=== PATIENT | female | born 1965 | race Hispanic/Latino ===

== ENCOUNTER 2018-06-15 20:46 | Emergency (ER) | payer MEDICARE ==
[2018-06-15] MEDS ORDERED: Ondansetron HCl/PF 4 MG/2 ML Vial ONE (21:08)
[2018-06-15] MEDS ORDERED: Fentanyl 100 MCG/2 ML VIAL ONE (21:08)
--- NOTE | 2018-06-15 22:11 | ULT ---
PELVIC ULTRASOUND WITH DOPPLER 06/15/18 (Transabdominal, transvaginal, araiza scale, and color flow and spectral doppler). HISTORY: Left lower quadrant pain during her period. FINDINGS: The uterus measures 9.6 x 4.8 x 5.3 cm. There is a focal mass-like heterogeneous area near the fundus measuring 1.5 cm. The endometrium measures 8 mm in thickness. No free fluid is seen. The right ovary is not visualized. The left ovary measures 2.2 x 1 x 2.1 cm. Flow is demonstrated to the left ovary. No adnexal mass is seen on either side. A small amount of free fluid is seen in the r ight adnexal region. IMPRESSION: 1. Uterine fibroid. 2. Nonvisualization of the right ovary. 3. Small amount of free fluid in the right adnexal region. POS: RAVI
== END 2018-06-16 00:17 | disposition home or self-care (01) ==
LOC: ERS 20:46
DX: R10.12 Left upper quadrant pain (principal); E11.9 Type 2 diabetes mellitus without complications; I10 Essential (primary) hypertension; J45.909 Unspecified asthma, uncomplicated; F32.9 Major depressive disorder, single episode, unspecified; Z87.891 Personal history of nicotine dependence; Z79.84 Long term (current) use of oral hypoglycemic drugs; Z79.899 Other long term (current) drug therapy
CPT/HCPCS: 76856; 96361; 96374; 96375; J2405; J3010

== ENCOUNTER 2019-02-23 14:45 | Observation (INO) | payer MEDICARE ==
--- NOTE | 2019-02-23 16:01 | RAD ---
EXAMINATION: 3 views of the left wrist HISTORY: Wrist pain; cyst in the left wrist COMPARISON: None FINDINGS: 3 views of the left wrist shows no evidence of acute fracture or dislocation. No soft tissu e swelling is seen. No degenerative changes are present. IMPRESSION: No evidence of acute osseous abnormality.
[2019-02-23] MEDS ORDERED: Lidocaine 1% PF 5 ML VIAL ONE (16:05)
[2019-02-23] MEDS ORDERED: PROPOFOL 200 MG/20 ML VIAL ONE (16:05)
[2019-02-23] MEDS ORDERED: Dexamethasone 20 MG/5 ML VIAL ONE (16:05)
[2019-02-23] MEDS ORDERED: Ketorolac Tromethamine 30 MG/ML VIAL ONE (16:45)
[2019-02-23 17:19] LABS: #Basophils 0.1 thou/uL (0.0-0.2); #Eosinphils 0.1 thou/uL (0.0-0.7); #Lymphocytes 3.5 thou/uL (1.20-3.40); #Monocytes 0.7 thou/uL (0.11-0.59); #Neutrophils 6.2 thou/uL (1.40-6.50); %Basophils 0.6 % (0.0-1.0); %Eosinophils 1.2 % (0.0-10.0); %Lymphocytes 32.8 % (21.0-51.0); %Monocytes 6.7 % (0.0-10.0); %Neutrophils 58.6 % (42.0-75.0); Hemoglobin 13.7 g/dL (12.0-16.0); Mean Corpuscular HGB CONC 32.7 g/dL (32.0-36.0); Mean Corpuscular Hemoglobin 28.6 pg (27.0-31.0); Mean Corpuscular Volume 87.5 fL (78.0-98.0); Mean Platelet Volume 7.6 fL (7.4-10.4); Platelet Count 270 thou/uL (130-400); RBC Distribution Width 11.7 % (11.5-14.5); Red Blood Cell (RBC) Count 4.78 mill/uL (4.20-5.40); White Blood Cell (WBC) Count 10.6 thou/uL (4.8-10.8)
[2019-02-23 17:38] LABS: BHCG - Serum Negative (NEGATIVE); Pregs Control Background? CLEAR/WHITE (CLR/WHITE); Pregs Control Bar Appear? YES (CONTROL BAR)
[2019-02-23 17:40] LABS: ALT (SGPT) 20 U/L (8-55); AST (SGOT) 13 U/L (5-34); Albumin 4.1 g/dL (3.5-5.0); Alkaline Phosphatase 129 U/L (40-150); Anion Gap 12 mmol/L (10-20); BUN (Urea Nitrogen) 9 mg/dL (9.8-20.1); Bilirubin, Total 0.3 mg/dL (0.2-1.2); Calc. Creatinine Clearance 0 mL/min (70-130); Calcium 9.4 mg/dL (7.8-10.44); Carbon Dioxide 26 mmol/L (22-29); Chloride 104 mmol/L (98-107); Estimated GFR-MDRD Greater than 90; Glucose 133 mg/dL (70-105); Potassium 3.9 mmol/L (3.5-5.1); Protein, Total 7.1 g/dL (6.0-8.3); Sodium 138 mmol/L (136-145)
--- NOTE | 2019-02-23 18:04 | ULT ---
ULTRASOUND SOFT TISSUE OF THE LEFT WRIST: 02/23/19 HISTORY: Left wrist mass. FINDINGS/IMPRESSION: Sonographic evaluation of region of concern in the left wrist demonstrates a complex cystic mass oniel uring about 1 cm in the lateral aspect of the left wrist without internal flow. This cystic mass is v yair close to the radial artery but appears to be separate from it. The complex cystic mass is on the lateral aspect of the right radial artery. The etiology of the mass is uncertain. POS: SHARA
[2019-02-23] MEDS ORDERED: Morphine 4 MG/ML VIAL ONE (19:56)
[2019-02-23] MEDS ORDERED: Ondansetron PF 4 MG/2 ML Vial ONE (19:56)
[2019-02-23] MEDS ORDERED: Bupivacaine PF 0.5% 30 ML VIAL ONE (21:14)
[2019-02-23] MEDS ORDERED: Sodium Chloride 0.9% 10 ML ONE (21:14)
[2019-02-23] MEDS ORDERED: Bacitracin Zinc Ointment 30 gm TUBE ONE (21:14)
[2019-02-23] MEDS ORDERED: Hetastarch 6% 500 ML 0 ML ONE (21:20)
[2019-02-23] MEDS ORDERED: Heparin 10,000 UNITS/1 ML VIAL ONE (21:20)
[2019-02-23] MEDS ORDERED: Lidocaine 2% PF 5 ML VIAL ONE (21:20)
[2019-02-23] MEDS ORDERED: Midazolam HCl 2 mg/2 ml Vial ONE (21:31)
[2019-02-23] MEDS ORDERED: Fentanyl 100 MCG/2 ML VIAL ONE (21:31)
[2019-02-23] MEDS ORDERED: Betamet Acet/Betamet Na Ph 30 MG/5 ML VIAL ONE (22:35)
[2019-02-23] MEDS ORDERED: Promethazine HCl 25 MG/ML VIAL SLOW IVP PRN (23:21)
[2019-02-23] MEDS ORDERED: Ondansetron HCl/PF 4 MG/2 ML Vial IVP PRN (23:21)
[2019-02-23] MEDS ORDERED: Promethazine HCl 25 MG/ML VIAL IM PRN ×2 (23:21→23:35)
[2019-02-23] MEDS ORDERED: Milk Of Magnesia 30 ML UDCUP PO PRN (23:35)
[2019-02-23] MEDS ORDERED: Acetaminophen 325 MG TAB PO PRN (23:35)
[2019-02-23] MEDS ORDERED: traMADol HCl 50 MG TAB PO PRN (23:35)
[2019-02-23] MEDS ORDERED: HYDROcodone/Acetaminophen 5/325 mg Tablet PO PRN (23:35)
[2019-02-23] MEDS ORDERED: Morphine 4 MG/ML VIAL SLOW IVP PRN (23:35)
[2019-02-23] MEDS ORDERED: Ondansetron PF 4 MG/2 ML Vial IV PRN (23:35)
[2019-02-23] MEDS ORDERED: Ketorolac Tromethamine 30 MG/ML VIAL IVP PRN (23:43)
[2019-02-23] MEDS ORDERED: TETANUS AND DIPHTHERIA TOX/PF 0.5 ML DISP.SYRIN IM SCH (23:45)
[2019-02-23] MEDS ORDERED: Communication Order-Pharmacy FS SCH (23:45)
[2019-02-23] MEDS ORDERED: Vancomycin HCl 1 GM in Premix Bag 1 BAG IVPB SCH (23:45)
[2019-02-24] MEDS: Ketorolac Tromethamine 30 MG/ML VIAL IVP SCH ×2 (00:30→05:53)
[2019-02-24 01:08] VITALS: BMI 43.1
[2019-02-24] MEDS ORDERED: Vancomycin HCl 1.25 GM in Sodium Chloride 0.9% 250 ML 250 ML IVPB SCH (03:00)
[2019-02-24 07:50] VITALS: BP 103/68; TEMP 98
[2019-02-24] MEDS ORDERED: Aspirin 81 mg Enteric Coated Tablet PO SCH (09:00)
--- NOTE | 2019-02-24 09:44 | OP ---
DATE OF PROCEDURE: 02/23/2019 PREOPERATIVE DIAGNOSIS: 1. 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 2. Left wrist palmar ganglion surrounding radial artery. FINDINGS: Ganglion, ulnar edge under the radial artery and its radial edge pushing through the superficial radial nerve over the brachioradialis tendon. PROCEDURES PERFORMED: 1. Left wrist open palmar ganglion excision 2-2.5 cm cavity. 2. Left wrist superficial radial nerve neuroplasty with left wrist arthrotomy with synovectomy. SPECIMENS SENT: Left wrist 2.5 cm cavity ganglion, radiocarpal. ESTIMATED BLOOD LOSS: 15 mL. TOURNIQUET TIME: 21 minutes. FINDINGS DESCRIPTION: The patient had a ganglion developing underneath the radial artery, pushing it ulnarly and then moving to push radially against superficial radial nerve . DESCRIPTION OF PROCEDURE: After successful general LMA technique, the limb was prepped and draped. Time-out was done appropriately. The patient had the wound evaluated and we already knew was intact. We then exsanguinated the limb, inflated tourniquet to 250 mmHg pressure and made a zigzag incision, Jeb type, palmarly centered over the mass and carried this through the skin and subcutaneous tissue, removing and cauterizing a one small muscular bleeding branch and then we visualized, in fact the radial artery was over a thick red, yellow mass consistent with a hemorrhagic ganglion. We also saw that the mass was confluent with compression upon the superficial radial nerve terminal branches, so we immediately performed a neuroplasty, it from the nerve. We then performed a small arthrotomy and lifted the venous arterial complex off the mass, and moving it radially for remaining part of the procedure. We then did a 360-degree dissection in a combination with tenotomy scissors and a Bond blade until we had completely freed the mass. The mass cavity was about 2 cm as it was minimally perforated and had a stalk approximately 3 mm pointing in the radiocarpal joint. We carried this through the joint capsule, retinaculum, then evaluated the joint and found that we had a small amount of synovitis, so we performed a mini synovectomy of the radiocarpal joint. The tourniquet was now deflated. We placed 2 mL of Celestone in the wound, and then completed our arthrotomy with synovectomy. We also released the tourniquet, obtained hemostasis using some vessel clips and electrocautery and pressure. We closed the wound with interrupted 4-0 nylon in a mattress pattern. Bulky dressing was applied along with a short-arm splint. A short-arm splint was applied. The patient left the operating room without evidence of anesthetic or operative complication. Job ID: [id number]
--- NOTE | 2019-03-09 13:56 | EKG ---
Test Reason : Blood Pressure : / mmHG Vent. Rate : 077 BPM Atrial Rate : 077 BPM P-R Int : 130 ms QRS Dur : 096 ms QT Int : 384 ms P-R-T Axes : 054 023 025 degrees QTc Int : 434 ms Normal sinus rhythm Nonspecific ST abnormality Abnormal ECG Confirmed by LB WARREN D.O. ([id number]), editor city DAY MCGREGOR ([id number]) on 03/09/2019 1:54:57 PM Referred By: Confirmed By:LB WARREN D.O.
== END 2019-02-24 11:22 | disposition home or self-care (01) ==
LOC: ERS 14:45 → SDC/OP 19:49 → SURG A 02-24 00:13
PROVIDERS: ADMIT Orthopaedic Surgery Hand Surgery; ATTEND Orthopaedic Surgery Hand Surgery
PROC: 0LB60ZZ Excision of Left Lower Arm and Wrist Tendon, Open Approach (ICD-10-PCS; principal; 2019-02-24)
PROC: 01N60ZZ Release Radial Nerve, Open Approach (ICD-10-PCS; 2019-02-24)
DX: M67.432 Ganglion, left wrist (principal); G62.89 Other specified polyneuropathies; G89.29 Other chronic pain; M54.9 Dorsalgia, unspecified; I10 Essential (primary) hypertension; E11.9 Type 2 diabetes mellitus without complications; J45.909 Unspecified asthma, uncomplicated; F32.9 Major depressive disorder, single episode, unspecified; Z87.891 Personal history of nicotine dependence; Z79.51 Long term (current) use of inhaled steroids; Z79.82 Long term (current) use of aspirin; Z79.899 Other long term (current) drug therapy; Z98.890 Other specified postprocedural states
CPT/HCPCS: 25111; 64708; 73110; 76999; 80053; 82962 ×2; 84703; 85025; 88304; 93005; 96361; 96365; 96366; 96374; 96375 ×2; 96376; 99285; G0378 ×2; 36416; J0690; J0702; J1100; J1644; J1885; J2001; J2250; J2270; J2405; J2550; J2704; J3010; J3370; J3490; J7050; J7620; S0020

== ENCOUNTER 2019-11-23 12:32 | Outpatient (CLI) | payer MEDICARE ==
[2019-11-23 13:59] LABS: #Basophils 0.1 thou/uL (0.0-0.2); #Eosinphils 0.1 thou/uL (0.0-0.7); #Lymphocytes 3.2 thou/uL (1.20-3.40); #Monocytes 0.6 thou/uL (0.11-0.59); #Neutrophils 6.3 thou/uL (1.40-6.50); %Basophils 0.7 % (0.0-1.0); %Eosinophils 1.2 % (0.0-10.0); %Monocytes 5.9 % (0.0-10.0); %Neutrophils 61.2 % (42.0-75.0); Hemoglobin 15.5 g/dL (12.0-16.0); Mean Corpuscular HGB CONC 32.4 g/dL (32.0-36.0); Mean Corpuscular Hemoglobin 28.5 pg (27.0-31.0); Mean Corpuscular Volume 88.1 fL (78.0-98.0); Mean Platelet Volume 8.2 fL (7.4-10.4); Platelet Count 245 thou/uL (130-400); RBC Distribution Width 11.1 % (11.5-14.5); Red Blood Cell (RBC) Count 5.45 mill/uL (4.20-5.40); White Blood Cell (WBC) Count 10.2 thou/uL (4.8-10.8)
[2019-11-23 14:06] LABS: Prothrombin Time 12.8 SEC (12.0-14.7)
[2019-11-23 14:18] LABS: Bacteria/HPF None Seen HPF (None Seen); Bilirubin Negative (Negative); Blood, Urine Negative (Negative); Clarity Clear (Clear); Glucose, Urine (Dipstick) Greater than 1000 mg/dL (Negative); Leukocyte Negative Leu/uL (Negative); Nitrite Negative (Negative); Protein, Urine (Dipstick) Negative (Neg-Trace); RBC/HPF 0-3 HPF (0-3); Urobilinogen Normal mg/dL (Less than 2); WBC/HPF 0-3 HPF (0-3)
[2019-11-23 14:19] LABS: Anion Gap 13 mmol/L (10-20); BUN (Urea Nitrogen) 11 mg/dL (9.8-20.1); Calc. Creatinine Clearance 0 mL/min (70-130); Calcium 9.3 mg/dL (7.8-10.44); Carbon Dioxide 28 mmol/L (22-29); Chloride 101 mmol/L (98-107); Estimated GFR-MDRD 81; Glucose 300 mg/dL (70-105); Potassium 4.4 mmol/L (3.5-5.1); Sodium 138 mmol/L (136-145)
== END 2019-11-23 12:33 | disposition home or self-care (01) ==
LOC: LABBT 12:32
PROVIDERS: ATTEND Orthopaedic Surgery
DX: Z01.818 Encounter for other preprocedural examination (principal); M17.12 Unilateral primary osteoarthritis, left knee
CPT/HCPCS: 80048; 81001; 85025; 85610; 87081; 93005; 93010

== ENCOUNTER 2019-12-05 07:40 | Inpatient (IN) | payer MEDICARE ==
[2019-11-23 12:49] VITALS: BMI 39.6
[2019-12-05] MEDS ORDERED: Tranexamic Acid 1,000 MG/10 ML VIAL ONE (09:03)
[2019-12-05] MEDS ORDERED: Sodium Chloride 0.9% 100 ML ONE (09:03)
[2019-12-05] MEDS ORDERED: Vancomycin 1.5 GRAM/300 ML BAG 1.5 GM/300 ML BAG ONE (09:03)
[2019-12-05] MEDS ORDERED: Midazolam HCl 2 mg/2 ml Vial ONE (10:13)
[2019-12-05] MEDS ORDERED: Fentanyl 100 MCG/2 ML VIAL ONE ×3 (10:13→13:53)
[2019-12-05] MEDS ORDERED: Fentanyl 100 MCG/2 ML VIAL SLOW IVP PRN ×2 (10:54)
[2019-12-05] MEDS ORDERED: Promethazine HCl 25 MG/ML VIAL IM PRN ×2 (10:54→10:56)
[2019-12-05] MEDS ORDERED: Acetaminophen 325 MG TAB PO PRN ×2 (10:54→10:56)
[2019-12-05] MEDS ORDERED: Zolpidem Tartrate 5 MG TAB PO PRN ×2 (10:54→10:56)
[2019-12-05] MEDS ORDERED: diphenhydrAMINE 25 MG CAP PO PRN (10:54)
[2019-12-05] MEDS ORDERED: HYDROcodone/Acetaminophen 10/325 mg Tablet PO PRN ×3 (10:54→10:56)
[2019-12-05] MEDS ORDERED: Albuterol Sulfate 2.5 mg/3 ml Neb NEB PRN (10:55)
[2019-12-05] MEDS ORDERED: PROVENTIL INHALER 6.7 G (200 INHALATIONS) INH PRN (10:55)
[2019-12-05] MEDS ORDERED: Non-Formulary Item 1 EACH (Albuterol Sulfate [Proair Respiclick] 90 MCG) IH PRN (10:55)
[2019-12-05] MEDS ORDERED: traMADol HCl 50 MG TAB PO PRN (10:56)
[2019-12-05] MEDS ORDERED: Ropivacaine HCl/PF 250 ML in Premix Bag 1 BAG NERVE BLCK SCH (10:56)
[2019-12-05] MEDS ORDERED: Ondansetron PF 4 MG/2 ML Vial IVP PRN (10:56)
[2019-12-05] MEDS ORDERED: Ondansetron PF 4 MG/2 ML Vial ONE (11:13)
[2019-12-05] MEDS ORDERED: Lidocaine 1% PF 5 ML VIAL ONE (11:13)
[2019-12-05] MEDS ORDERED: Bupivacaine HCl 0.5%/Epinephrine 1:200,000/PF 30 ml Vial ONE (11:13)
[2019-12-05] MEDS ORDERED: PROPOFOL 200 MG/20 ML VIAL ONE (11:13)
[2019-12-05] MEDS ORDERED: Ropivacaine 0.2% HCl/PF (40 MG/20 ML VIAL) ONE (11:13)
[2019-12-05] MEDS ORDERED: Ketorolac Tromethamine 30 MG/ML VIAL IVP SCH (12:00)
--- NOTE | 2019-12-05 13:17 | RAD ---
EXAM: 2 views of the left knee HISTORY: Knee arthroplasty COMPARISON: None FINDINGS: No knee effusion is seen. The patient is status post knee arthroplasty without perihardware lucency or fracture. Air in the soft tissues is from recent surgery. IMPRESSION: Status post knee arthroplasty without evidence of complication.
[2019-12-05] MEDS: Sodium Chloride 0.9% 1,000 ML IV SCH ×2 (15:41→22:54)
[2019-12-05] MEDS ORDERED: Dextrose 5% in Water 1,000 ML IV PRN (16:15)
[2019-12-05] MEDS ORDERED: Dextrose 50% Abboject 50 ML SYRINGE SLOW IVP PRN (16:15)
[2019-12-05] MEDS: metFORMIN 500 MG TAB PO SCH (16:16)
[2019-12-05] MEDS: HYDROcodone/Acetaminophen 10/325 mg Tablet PO PRN ×2 (16:17→19:42)
[2019-12-05] MEDS: Ketorolac Tromethamine 30 MG/ML VIAL IVP SCH ×2 (16:18→22:54)
[2019-12-05] MEDS ORDERED: CEFAZOLIN 2 GM in Premix Bag 1 BAG IVPB SCH (17:00)
[2019-12-05 17:06] LABS: #Basophils 0.1 thou/uL (0.0-0.2); #Eosinphils 0.1 thou/uL (0.0-0.7); #Monocytes 0.7 thou/uL (0.11-0.59); #Neutrophils 11.7 thou/uL (1.40-6.50); %Basophils 0.4 % (0.0-1.0); %Eosinophils 0.6 % (0.0-10.0); %Lymphocytes 13.4 % (21.0-51.0); %Neutrophils 80.7 % (42.0-75.0); Hemoglobin 13.9 g/dL (12.0-16.0); Mean Corpuscular HGB CONC 31.5 g/dL (32.0-36.0); Mean Corpuscular Hemoglobin 28.1 pg (27.0-31.0); Mean Corpuscular Volume 89.3 fL (78.0-98.0); Mean Platelet Volume 8.4 fL (7.4-10.4); Platelet Count 221 thou/uL (130-400); RBC Distribution Width 11.2 % (11.5-14.5); Red Blood Cell (RBC) Count 4.95 mill/uL (4.20-5.40); White Blood Cell (WBC) Count 14.5 thou/uL (4.8-10.8)
[2019-12-05 17:17] LABS: Anion Gap 13 mmol/L (10-20); BUN (Urea Nitrogen) 9 mg/dL (9.8-20.1); Calc. Creatinine Clearance 153 mL/min (70-130); Calcium 8.5 mg/dL (7.8-10.44); Carbon Dioxide 21 mmol/L (22-29); Chloride 104 mmol/L (98-107); Estimated GFR-MDRD Greater than 90; Glucose 320 mg/dL (70-105); Potassium 4.1 mmol/L (3.5-5.1); Sodium 134 mmol/L (136-145)
[2019-12-05 17:24] LABS: Lactic Acid 2.3 mmol/L (0.5-2.2)
[2019-12-05] MEDS ORDERED: guaiFENesin 200 MG TAB PO PRN (17:53)
--- NOTE | 2019-12-05 17:59 | RAD ---
Exam: Chest one view HISTORY:Productive cough. Shortness of breath Comparison: 10/26/2016 FINDINGS: Cardiac silhouette: Normal Aorta: Unremarkable Pulmonary vessels: Normal Costophrenic angles: Clear LUNGS: No masses or consolidation. Pneumothorax: None Osseous abnormalities: None IMPRESSION: No acute cardiopulmonary process.
[2019-12-05] MEDS: Ondansetron PF 4 MG/2 ML Vial IVP PRN (18:05)
[2019-12-05] MEDS: HumaLOG 300 UNITS/3 ML VIAL SC PRN ×2 (18:33→22:01)
--- NOTE | 2019-12-05 19:28 | CON ---
DATE OF CONSULTATION: 12/05/2019 TIME OF ASSESSMENT: 1500 hours. REASON FOR CONSULTATION: Medical management. HISTORY OF PRESENT ILLNESS: Ms. Barker is a 54-year-old woman, who is status post left total knee replacement. She had this procedure done earlier today. She has just recently been brought up to floor and at this present moment, the patient states she feels somewhat anxious and with some difficulty breathing. She has developed a productive cough of yellow sputum. She states she felt like she was wheezing prior to surgery. She does have known asthma and is due for her nebulizer treatment for p.m. and missed her nebulizer treatment this morning due to surgery. The patient denies having any recent fevers, chills, or sweats. States she did not have a cough prior to today. Denies any chest pain. She states she does take medications for depression and sometimes feels anxious. She was feeling somewhat constricted by the bedside table and felt better once I moved it away from her and elevated the head of her bed. The patient also states she is in some discomfort. Nurse at bedside giving her scheduled pain medications. She reports feeling very hungry. Has not had anything to eat yet since surgery. Denies any nausea or vomiting. Reports mild headache due to not eating. No abdominal pain. REVIEW OF SYSTEMS: All other review of systems are negative. PAST MEDICAL HISTORY: 1. Asthma. 2. Type 2 diabetes mellitus. 3. Hyperlipidemia. 4. Chronic back pain. 5. Depression/anxiety. PAST SURGICAL HISTORY: 1. Ganglion cyst removed in February 2019. 2. Complication from tube across ovary that wrapped around appendix and surgery done to unravel this. 3. Appendix not removed per patient. 4. . 5. Tonsillectomy. 6. Tubal ligation. SOCIAL HISTORY: The patient is a former smoker and quit more than 10 years ago. Denies any alcohol consumption or illicit drug use. She is fully independent and lives at home alone. ALLERGIES: NO KNOWN DRUG ALLERGIES. CURRENT MEDICATIONS: 1. Albuterol. 2. Aspirin. 3. Diclofenac. 4. Jardiance. 5. Fluticasone/salmeterol. 6. Trazodone. 7. Hydrocortisone lotion. 8. Lisinopril. 9. Hyoscyamine. 10. Metformin. 11. Metoprolol succinate. 12. Montelukast. 13. Paxil. 14. Seroquel. 15. Topiramate. PHYSICAL EXAMINATION: GENERAL: The patient appears somewhat anxious and fidgety, in no apparent respiratory distress. She is saturating 96% on room air, but appears uncomfortable. She seemed to settle once I move the bedside table away from her. VITAL SIGNS: Temperature 96.8, pulse 66, respirations 20, O2 saturation 96% on room air, and blood pressure 122/77. HEENT: Normocephalic and atraumatic. Pupils are equal, round, and reactive to light. Sclerae icterus. Oropharynx is clear. NECK: Supple. LUNGS: Clear bilaterally. CARDIAC: Regular rate and rhythm. ABDOMEN: Obese, soft, nontender, and nondistended. Normoactive bowel sounds present. No guarding or rigidity. No renal angle tenderness. EXTREMITIES: No swelling or edema. NEUROLOGIC: Alert and oriented x3. The patient appears anxious and fidgety. SKIN: Warm and dry. IMPRESSION AND PLAN: Ms. Barker is a 54-year-old woman, who is status post a left total knee replacement, who has been referred for medical management. We will continue to follow, manage the followin. Shortness of breath with productive cough. We will obtain a chest x-ray. Continue to monitor O2 saturations, which appeared to be normal on room air. Guaifenesin for congestion and we will obtain sputum culture. We will check a CBC and BMP including lactic acid and procalcitonin. We will also check her BNP. The patient remains afebrile at present. 2. Diabetes mellitus. Regular diet has been changed to a consistent carb diet. We will monitor blood glucose and initiate insulin sliding scale. Her home medications have been reconciled. 3. Hyperlipidemia. Resume home medications once verified. 4. Anxiety/depression. Home medications have been reconciled. 5. Asthma. Nebulizers and inhalers have been reconciled. We will order DuoNeb for now. As mentioned above, we will obtain a baseline chest x-ray and monitor O2 saturations. 6. Gastrointestinal prophylaxis with famotidine. 7. Deep venous thrombosis prophylaxis with mechanical sequential compression devices. 8. Code status full. Surrogate decision maker is her son, Ced Mitchell. The patient's case was discussed with attending, who agrees with plan of care as described above. Job ID: [id number]
[2019-12-05] MEDS: Mometasone/Formoterol 120 PUFF INHALER INH SCH (19:58)
[2019-12-05] MEDS: CEFAZOLIN 2 GM in Premix Bag 1 BAG IVPB SCH (20:33)
[2019-12-05] MEDS: Simvastatin 5 MG TAB PO SCH (20:33)
[2019-12-05] MEDS: Aspirin 81 mg Enteric Coated Tablet PO SCH (20:34)
[2019-12-05] MEDS: Montelukast Sodium 10 mg Tablet PO SCH (20:34)
[2019-12-05] MEDS: Topiramate 25 MG TAB PO SCH (22:01)
[2019-12-06] MEDS: Ondansetron PF 4 MG/2 ML Vial IVP PRN (03:08)
[2019-12-06] MEDS: CEFAZOLIN 2 GM in Premix Bag 1 BAG IVPB SCH (03:09)
[2019-12-06] MEDS: Sodium Chloride 0.9% 1,000 ML IV SCH ×3 (03:18→15:47)
[2019-12-06] MEDS: Ketorolac Tromethamine 30 MG/ML VIAL IVP SCH ×3 (04:48→21:21)
[2019-12-06 05:36] LABS: #Basophils 0.1 thou/uL (0.0-0.2); #Lymphocytes 1.8 thou/uL (1.20-3.40); #Monocytes 1.2 thou/uL (0.11-0.59); #Neutrophils 9.6 thou/uL (1.40-6.50); %Basophils 0.5 % (0.0-1.0); %Eosinophils 0.2 % (0.0-10.0); %Monocytes 9.6 % (0.0-10.0); %Neutrophils 75.8 % (42.0-75.0); Hemoglobin 12.7 g/dL (12.0-16.0); Mean Corpuscular Hemoglobin 28.6 pg (27.0-31.0); Mean Corpuscular Volume 89.3 fL (78.0-98.0); Mean Platelet Volume 8.2 fL (7.4-10.4); Platelet Count 202 thou/uL (130-400); RBC Distribution Width 11.1 % (11.5-14.5); Red Blood Cell (RBC) Count 4.46 mill/uL (4.20-5.40); White Blood Cell (WBC) Count 12.6 thou/uL (4.8-10.8)
[2019-12-06 05:39] LABS: Hemoglobin 12.9 g/dL (12.0-16.0); Mean Corpuscular HGB CONC 30.9 g/dL (32.0-36.0); Mean Corpuscular Hemoglobin 28.4 pg (27.0-31.0); Mean Corpuscular Volume 92.1 fL (78.0-98.0); Mean Platelet Volume 8.4 fL (7.4-10.4); Platelet Count 203 thou/uL (130-400); RBC Distribution Width 11.3 % (11.5-14.5); Red Blood Cell (RBC) Count 4.53 mill/uL (4.20-5.40); White Blood Cell (WBC) Count 12.3 thou/uL (4.8-10.8)
[2019-12-06 05:53] LABS: Anion Gap 12 mmol/L (10-20); BUN (Urea Nitrogen) 11 mg/dL (9.8-20.1); Calc. Creatinine Clearance 153 mL/min (70-130); Calcium 8.4 mg/dL (7.8-10.44); Carbon Dioxide 20 mmol/L (22-29); Chloride 103 mmol/L (98-107); Estimated GFR-MDRD Greater than 90; Glucose 263 mg/dL (70-105); Potassium 3.9 mmol/L (3.5-5.1); Sodium 131 mmol/L (136-145)
[2019-12-06] MEDS: HumaLOG 300 UNITS/3 ML VIAL SC PRN ×4 (06:26→21:30)
[2019-12-06] MEDS: Mometasone/Formoterol 120 PUFF INHALER INH SCH ×2 (06:40→18:46)
[2019-12-06] MEDS: PARoxetine 20 MG TAB PO SCH (08:57)
[2019-12-06] MEDS: metFORMIN 500 MG TAB PO SCH ×2 (08:57→17:56)
[2019-12-06] MEDS: Furosemide 20 MG TAB PO SCH (08:58)
[2019-12-06] MEDS ORDERED: FLU VACC QS2019-20(6MOS UP)/PF 60 MCG/0.5 ML SYRINGE IM ONE (09:00)
[2019-12-06] MEDS ORDERED: Empagliflozin [Jardiance] 25 MG PO SCH (09:00)
[2019-12-06] MEDS ORDERED: Aspirin 81 mg Enteric Coated Tablet PO SCH (09:00)
[2019-12-06] MEDS ORDERED: HYDROCORTISONE 2.5% TOP SCH (09:00)
[2019-12-06] MEDS: Lisinopril 20 MG TAB PO SCH (09:05)
[2019-12-06] MEDS: Ferrous Gluconate 324 MG TAB PO SCH ×2 (09:05→21:34)
[2019-12-06] MEDS: Aspirin 81 mg Enteric Coated Tablet PO SCH ×2 (09:05→21:34)
[2019-12-06] MEDS: Multivitamin W/ Minerals 1 TAB PO SCH (09:05)
[2019-12-06] MEDS: Topiramate 25 MG TAB PO SCH ×2 (09:08→21:25)
[2019-12-06] MEDS: Senokot S 8.6-50 MG TAB PO SCH ×2 (09:08→21:35)
--- NOTE | 2019-12-06 11:58 | PDOC.HOSPP ---
- Subjective Encounter Date: 12/06/19 Encounter Time: 11:00 Subjective: had nausea overnight, none now ate her breakfast well - Objective Vital Signs & Weight: Vital Signs (12 hours) Temp Pulse Resp BP Pulse Ox 12/06/19 07:36 99.1 F 100 18 112/65 96 12/06/19 06:40 102 H 20 97 12/06/19 04:32 98.2 F 83 20 109/63 98 12/06/19 00:26 98.4 F 80 16 109/70 97 Weight Weight 224 lb I&O: 12/05/19 12/06/19 12/07/19 06:59 06:59 06:59 Intake Total 1800 Output Total 1025 Balance 775 Result Diagrams: 12/06/19 05:11 12/06/19 05:11 Additional Labs: Accuchecks 12/06/19 12/05/19 12/05/19 06:14 20:53 16:55 POC Glucose 271 H 270 H 322 H Hospitalist ROS - Medication Medications: Active Medications Generic Name Dose Route Start Last Admin Trade Name Freq PRN Reason Stop Dose Admin Aspirin 81 mg 12/05/19 21:00 12/06/19 09:05 Ecotrin PO Not Given BID DOYLE Ferrous Gluconate 324 mg 12/06/19 09:00 12/06/19 09:05 Fergon PO Not Given BID DOYLE Furosemide 20 mg 12/06/19 09:00 12/06/19 08:58 Lasix PO 20 mg QAM DOYLE Administration Sodium Chloride 1,000 mls @ 100 mls/hr 12/05/19 11:00 12/06/19 09:04 Normal Saline 0.9% IV Not Given .Q10H DOYLE Insulin Human Lispro 0 units 12/05/19 16:15 12/06/19 06:26 Humalog SC 4 unit .MILD SLIDING SCALE PRN Administration Mild Correctional Scale Insulin Human Lispro 0 units 12/05/19 16:15 12/05/19 22:01 Humalog SC 3 unit .BEDTIME SLIDING SC PRN Administration Bedtime Correctional Scale Iron/Minerals/Multivitamins 1 tab 12/06/19 09:00 12/06/19 09:05 Theragran M PO Not Given DAILY DOYLE Ketorolac Tromethamine 30 mg 12/05/19 14:00 12/06/19 04:48 Toradol IVP 12/07/19 14:01 30 mg Q8HR DOYLE Administration Lisinopril 20 mg 12/06/19 09:00 12/06/19 09:05 Zestril PO Not Given DAILY DOYLE Metformin HCl 1,000 mg 12/05/19 17:00 12/06/19 08:57 Glucophage PO 1,000 mg BID-WM DOYLE Administration Metoprolol Succinate 25 mg 12/06/19 09:00 12/06/19 09:05 Toprol Xl PO Not Given DAILY [facility] Mometasone Furoate/Formoterol Fumar 2 puff 12/05/19 18:30 12/06/19 06:40 Dulera 200 Mcg/5 Mcg Inhaler INH 2 puff BID-RT DOYLE Administration Montelukast Sodium 10 mg 12/05/19 21:00 12/05/19 20:34 Singulair PO 10 mg HS DOYLE Administration Ondansetron HCl 4 mg 12/05/19 10:54 12/06/19 03:08 Zofran IVP 4 mg Q6H PRN Administration Nausea/Vomiting Paroxetine HCl 10 mg 12/06/19 09:00 12/06/19 08:57 Paxil PO 10 mg DAILY DOYLE Administration Quetiapine Fumarate 25 mg 12/05/19 21:00 12/05/19 20:34 Seroquel PO 25 mg HS DOYLE Administration Senna/Docusate Sodium 2 tab 12/06/19 09:00 12/06/19 09:08 Senokot S PO Not Given BID DOYLE Simvastatin 10 mg 12/05/19 21:00 12/05/19 20:33 Zocor PO 10 mg HS DOYLE Administration Topiramate 50 mg 12/05/19 21:00 12/06/19 09:08 Topamax PO Not Given BID [facility] - Exam General Appearance: awake alert Eye: PERRL, anicteric sclera ENT: no oropharyngeal lesions, moist mucosa Neck: supple, no JVD Heart: RRR, no murmur Respiratory: no wheezes, no rales Gastrointestinal: soft, non-tender, non-distended, normal bowel sounds Extremities - other findings: left knee post op changes/dressing+ Neurological: cranial nerve grossly intact, no focal deficits Psychiatric: A&O x 3 Hosp A/P (1) Status post total knee replacement, left Code(s): Z96.652 - PRESENCE OF LEFT ARTIFICIAL KNEE JOINT Status: Acute (2) H/O extrinsic asthma Code(s): Z87.09 - PERSONAL HISTORY OF OTHER DISEASES OF THE RESPIRATORY SYSTEM Status: Chronic (3) Dyslipidemia Code(s): E78.5 - HYPERLIPIDEMIA, UNSPECIFIED Status: Chronic (4) Obesity (BMI 30-39.9) Code(s): E66.9 - OBESITY, UNSPECIFIED Status: Chronic (5) Anxiety and depression Code(s): F41.9 - ANXIETY DISORDER, UNSPECIFIED; F32.9 - MAJOR DEPRESSIVE DISORDER, SINGLE EPISODE, UNSPECIFIED Status: Chronic (6) Diabetes type 2, controlled Code(s): E11.9 - TYPE 2 DIABETES MELLITUS WITHOUT COMPLICATIONS Status: Chronic Qualifiers: Diabetes mellitus exterminator helper insulin use: without exterminator helper use Diabetes mellitus complication status: without complication Qualified Code(s): E11.9 - Type 2 diabetes mellitus without complications (7) Hypertension Code(s): I10 - ESSENTIAL (PRIMARY) HYPERTENSION Status: Chronic Qualifiers: Hypertension type: essential hypertension Qualified Code(s): I10 - Essential (primary) hypertension - Plan is on asp bid, duonebs prn, singulair, paxil, seroquel, metformin, empaglifosin , toprol xl, lisinopril and lovastatin hemostable to mobilize per ortho adv will f/u
[2019-12-06] MEDS: Fentanyl 100 MCG/2 ML VIAL IV PRN ×3 (12:05→17:52)
[2019-12-06] MEDS ORDERED: Promethazine HCl 25 MG/ML VIAL IM PRN (13:14)
[2019-12-06] MEDS: Acetaminophen 500 MG TAB PO SCH ×3 (13:28→23:17)
--- NOTE | 2019-12-06 13:38 | OP ---
DATE OF PROCEDURE: 12/05/2019 PREOPERATIVE DIAGNOSIS: Degenerative joint disease of the left knee. POSTOPERATIVE DIAGNOSIS: Degenerative joint disease of the left knee. PROCEDURE PERFORMED: Left total knee arthroplasty using #4 triathlon femur, #3 triathlon tibia, 9 mm CS X3 polyethylene, and A29 patella. HOT WALKER: Willard Briones PA-C BLOOD LOSS: Minimal. TOURNIQUET TIME: 52 minutes. PROCEDURE IN DETAIL: After informed consent was obtained in the preoperative holding area, the patient was taken to the operative suite where general anesthesia was induced. Once adequate level of general anesthesia was obtained, the patient was positioned and a well-padded tourniquet was placed around the left proximal thigh. The left lower extremity was then prepped and draped in the usual sterile fashion. Prior to exsanguination, a time-out was called and all members of the surgical team agreed upon site, surgeon, and patient. The extremity was then exsanguinated and the tourniquet was raised. A midline longitudinal incision was then made directly over the patella extending 2 fingerbreadths above the superior pole of the patella and 2 fingerbreadths inferior to the inferior patellar pole of the patella. Deeper subcutaneous layers were dissected sharply and local bleeding was controlled with Bovie electrocautery. A quad tendon longitudinal split was then made sharply and a median parapatellar arthrotomy was carried out both sharp and with Bovie electrocautery, carried down to 1 fingerbreadth medial to the tibial tubercle. The knee was then placed into flexion and the patella was everted nicely, and a copious fat pad ectomy was performed allowing for greater exposure of the tibia. The computer-assisted distal femoral fiducial was then placed and pinned firmly, and the distal femoral cutting guide was pinned firmly into place. The oscillating saw was then used to remove the appropriate amount of bone. The 4-in-1 cutting block was then placed on the distal femur and the oscillating saw was used to remove the appropriate amount of bone off the anterior, posterior, and chamfer cuts. After completion of bone cuts, the anterior cruciate ligament was resected sharply and the posterior cruciate ligament retractor was placed and the tibia was subluxed for better exposure. Partial meniscectomies were carried out, and the tibial computer-assisted fiducial was pinned, and the cutting guide was placed. Oscillating saw was then used to remove the bone, with Hohmann retractors used to take care and protect the collateral ligaments. After the tibial resection was performed, a laminar undertaker helper was placed in between the freshened bone cuts. The knee placed at 90 degrees and further bilateral meniscectomies were carried out, and the curved osteotome and curettage were used to remove any excess bone spurs in the posterior compartment. The trial femoral component, tibial baseplate were placed with the appropriate polyethylene trial insert with an appropriate polyethylene spacer and patellar button. The knee was taken through full range of motion with flexion and extension from 0 to 90 degrees and patellar broach squarely in the trochlea without any squinting or subluxation noted. The knee was also stable to varus and valgus stressing at 0, 15, 45, and 90 degrees of flexion. The drawer was negative. All trial components were then removed and the keel punch was used to provide the appropriate defect in the tibia with a mallet. The freshened bone cuts were copiously irrigated with pulsatile lavage of about 1.5 L to remove all excess debris. The freshened bone cuts were then dried with suction and lap sponge. The knee was placed in flexion and retractors were placed to provide access to all bone cuts. Tobramycin-impregnated methyl methacrylate cement was then placed on the freshened bone cuts and implants which were malleted firmly into place. Curettage and Enterprise elevators were used to remove any excess bone cement. The knee was placed into full extension and the patellar button was placed under compression, and the cement was allowed to cure. Once completed, the components were again taken through full range of motion and copious irrigation of the knee was carried out with another liter of normal saline. All components were inspected fully with full range of motion and varus and valgus stressing. There was no laxity noted and full extension was observed clinically. Primary closure was accomplished with #2 interrupted Vicryl stitch of the arthrotomy defect. This was oversewn with a #2 running Quill barbed stitch. The gravitational platelet system was then injected into the arthrotomy prior to closure. The subcutaneous layer was then closed with a running 0 barbed Monocryl stitch and skin closure accomplished with a running subcuticular 3-0 Monocryl barbed Quill stitch and augmented with cement on the skin. Tourniquet was lowered. Good spontaneous return of distal pulses was noted clinically and a sterile dressing was applied to the incision. The procedure was terminated without any complications. The patient was awakened in the operative suite, and the patient was taken to the recovery room in stable condition. Job ID: [id number]
[2019-12-06] MEDS: ALPRAZolam 1 MG TAB PO PRN (14:16)
[2019-12-06] MEDS: Montelukast Sodium 10 mg Tablet PO SCH (21:24)
[2019-12-06] MEDS: Simvastatin 5 MG TAB PO SCH (21:35)
[2019-12-07] MEDS: Fentanyl 100 MCG/2 ML VIAL IV PRN ×2 (03:27→14:27)
[2019-12-07] MEDS: Sodium Chloride 0.9% 1,000 ML IV SCH ×3 (03:59→22:09)
[2019-12-07 05:39] LABS: #Eosinphils 0.1 thou/uL (0.0-0.7); #Lymphocytes 1.8 thou/uL (1.20-3.40); #Neutrophils 8.7 thou/uL (1.40-6.50); %Basophils 0.3 % (0.0-1.0); %Eosinophils 0.5 % (0.0-10.0); %Lymphocytes 15.9 % (21.0-51.0); %Monocytes 8.5 % (0.0-10.0); %Neutrophils 74.8 % (42.0-75.0); Anion Gap 15 mmol/L (10-20); BUN (Urea Nitrogen) 9 mg/dL (9.8-20.1); Calc. Creatinine Clearance 153 mL/min (70-130); Calcium 8.7 mg/dL (7.8-10.44); Carbon Dioxide 22 mmol/L (22-29); Chloride 102 mmol/L (98-107); Estimated GFR-MDRD Greater than 90; Glucose 255 mg/dL (70-105); Hemoglobin 12.5 g/dL (12.0-16.0); Mean Corpuscular HGB CONC 32.5 g/dL (32.0-36.0); Mean Corpuscular Hemoglobin 28.6 pg (27.0-31.0); Mean Corpuscular Volume 88.1 fL (78.0-98.0); Mean Platelet Volume 7.9 fL (7.4-10.4); Platelet Count 186 thou/uL (130-400); Potassium 3.8 mmol/L (3.5-5.1); RBC Distribution Width 11.1 % (11.5-14.5); Red Blood Cell (RBC) Count 4.36 mill/uL (4.20-5.40); Sodium 135 mmol/L (136-145); White Blood Cell (WBC) Count 11.6 thou/uL (4.8-10.8)
[2019-12-07] MEDS: HumaLOG 300 UNITS/3 ML VIAL SC PRN ×2 (06:04→16:17)
[2019-12-07] MEDS: Ketorolac Tromethamine 30 MG/ML VIAL IVP SCH ×2 (06:04→14:19)
[2019-12-07] MEDS: Acetaminophen 500 MG TAB PO SCH ×3 (06:04→17:41)
[2019-12-07] MEDS: ALPRAZolam 1 MG TAB PO PRN (06:11)
[2019-12-07] MEDS: Mometasone/Formoterol 120 PUFF INHALER INH SCH ×2 (06:51→20:10)
[2019-12-07] MEDS: Ondansetron PF 4 MG/2 ML Vial IVP PRN (09:57)
[2019-12-07] MEDS: metFORMIN 500 MG TAB PO SCH ×2 (10:07→16:21)
[2019-12-07] MEDS: Aspirin 81 mg Enteric Coated Tablet PO SCH ×2 (10:08→20:46)
[2019-12-07] MEDS: Ferrous Gluconate 324 MG TAB PO SCH ×2 (10:08→20:44)
[2019-12-07] MEDS: Senokot S 8.6-50 MG TAB PO SCH ×2 (10:09→20:44)
[2019-12-07] MEDS: Multivitamin W/ Minerals 1 TAB PO SCH (10:09)
[2019-12-07] MEDS: Lisinopril 20 MG TAB PO SCH (10:09)
[2019-12-07] MEDS: Furosemide 20 MG TAB PO SCH (10:10)
[2019-12-07] MEDS: PARoxetine 20 MG TAB PO SCH (10:10)
[2019-12-07] MEDS: traMADol HCl 50 MG TAB PO PRN ×2 (10:22→20:44)
--- NOTE | 2019-12-07 12:08 | PDOC.HOSPP ---
- Subjective Encounter Date: 12/07/19 Encounter Time: 10:15 Subjective: no sob or palp no nausea now wants something for constipation - Objective Vital Signs & Weight: Vital Signs (12 hours) Temp Pulse Resp BP BP Pulse Ox 12/07/19 10:09 155/85 H 12/07/19 08:05 98.1 F 98 28 H 155/85 H 12/07/19 03:52 97.8 F 92 18 153/84 H 96 Weight Admit Weight 224 lb Weight 224 lb I&O: 12/06/19 12/07/19 12/08/19 06:59 06:59 06:59 Intake Total 1800 1220 Output Total 1025 750 Balance 775 470 Result Diagrams: 12/07/19 05:02 12/07/19 05:02 Additional Labs: Accuchecks 12/07/19 12/06/19 12/06/19 05:54 21:11 15:24 POC Glucose 275 H 252 H 225 H 12/06/19 12:00 POC Glucose 264 H Hospitalist ROS - Medication Medications: Active Medications Generic Name Dose Route Start Last Admin Trade Name Freq PRN Reason Stop Dose Admin Acetaminophen 1,000 mg 12/06/19 12:00 12/07/19 11:28 Tylenol PO 12/08/19 12:01 1,000 mg Q6HR DOYLE Administration Alprazolam 1 mg 12/06/19 13:14 12/07/19 06:11 Xanax PO 1 mg Q6H PRN Administration Anxiety Aspirin 81 mg 12/05/19 21:00 12/07/19 10:08 Ecotrin PO 81 mg BID DOYLE Administration Fentanyl 50 mcg 12/05/19 10:57 12/07/19 03:27 Sublimaze IV 50 mcg Q1H PRN Administration BREAKTHROUGH PAIN Ferrous Gluconate 324 mg 12/06/19 09:00 12/07/19 10:08 Fergon PO 324 mg BID DOYLE Administration Furosemide 20 mg 12/06/19 09:00 12/07/19 10:10 Lasix PO 20 mg QAM DOYLE Administration Sodium Chloride 1,000 mls @ 100 mls/hr 12/05/19 11:00 12/07/19 03:59 Normal Saline 0.9% IV Not Given .Q10H DOYLE Insulin Human Lispro 0 units 12/05/19 16:15 12/07/19 06:04 Humalog SC 4 unit .MILD SLIDING SCALE PRN Administration Mild Correctional Scale Insulin Human Lispro 0 units 12/05/19 16:15 12/06/19 21:30 Humalog SC 2 unit .BEDTIME SLIDING SC PRN Administration Bedtime Correctional Scale Iron/Minerals/Multivitamins 1 tab 12/06/19 09:00 12/07/19 10:09 Theragran M PO 1 tab DAILY DOYLE Administration Ketorolac Tromethamine 30 mg 12/05/19 14:00 12/07/19 06:04 Toradol IVP 12/07/19 14:01 30 mg Q8HR DOYLE Administration Lisinopril 20 mg 12/06/19 09:00 12/07/19 10:09 Zestril PO 20 mg DAILY DOYLE Administration Metformin HCl 1,000 mg 12/05/19 17:00 12/07/19 10:07 Glucophage PO 1,000 mg BID-WM DOYLE Administration Metoprolol Succinate 25 mg 12/06/19 09:00 12/07/19 10:10 Toprol Xl PO 25 mg DAILY DOYLE Administration Mometasone Furoate/Formoterol Fumar 2 puff 12/05/19 18:30 12/07/19 06:51 Dulera 200 Mcg/5 Mcg Inhaler INH 2 puff BID-RT DOYLE Administration Montelukast Sodium 10 mg 12/05/19 21:00 12/06/19 21:24 Singulair PO 10 mg HS DOYLE Administration Ondansetron HCl 4 mg 12/05/19 10:54 12/07/19 09:57 Zofran IVP 4 mg Q6H PRN Administration Nausea/Vomiting Paroxetine HCl 10 mg 12/06/19 09:00 12/07/19 10:10 Paxil PO 10 mg DAILY DOYLE Administration Quetiapine Fumarate 25 mg 12/05/19 21:00 12/06/19 21:24 Seroquel PO 25 mg HS DOYLE Administration Senna/Docusate Sodium 2 tab 12/06/19 09:00 12/07/19 10:09 Senokot S PO 2 tab BID DOYLE Administration Simvastatin 10 mg 12/05/19 21:00 12/06/19 21:35 Zocor PO Not Given HS DOYLE Topiramate 50 mg 12/05/19 21:00 12/06/19 21:25 Topamax PO 50 mg BID DOYLE Administration Tramadol HCl 100 mg 12/05/19 10:56 12/07/19 10:22 Ultram PO 100 mg Q6H PRN Administration Moderate Pain 4-6 - Exam General Appearance: awake alert Eye: PERRL, anicteric sclera ENT: no oropharyngeal lesions, moist mucosa Neck: supple, no JVD Heart: RRR, no murmur Respiratory: no wheezes, no rales Gastrointestinal: soft, non-tender, non-distended, normal bowel sounds Extremities: no cyanosis Neurological: cranial nerve grossly intact, no focal deficits Psychiatric: A&O x 3 Hosp A/P (1) Status post total knee replacement, left Code(s): Z96.652 - PRESENCE OF LEFT ARTIFICIAL KNEE JOINT Status: Acute (2) H/O extrinsic asthma Code(s): Z87.09 - PERSONAL HISTORY OF OTHER DISEASES OF THE RESPIRATORY SYSTEM Status: Chronic (3) Dyslipidemia Code(s): E78.5 - HYPERLIPIDEMIA, UNSPECIFIED Status: Chronic (4) Obesity (BMI 30-39.9) Code(s): E66.9 - OBESITY, UNSPECIFIED Status: Chronic (5) Anxiety and depression Code(s): F41.9 - ANXIETY DISORDER, UNSPECIFIED; F32.9 - MAJOR DEPRESSIVE DISORDER, SINGLE EPISODE, UNSPECIFIED Status: Chronic (6) Diabetes type 2, controlled Code(s): E11.9 - TYPE 2 DIABETES MELLITUS WITHOUT COMPLICATIONS Status: Chronic Qualifiers: Diabetes mellitus mcfp insulin use: without ocean transportation intermediary use Diabetes mellitus complication status: without complication Qualified Code(s): E11.9 - Type 2 diabetes mellitus without complications (7) Hypertension Code(s): I10 - ESSENTIAL (PRIMARY) HYPERTENSION Status: Chronic Qualifiers: Hypertension type: essential hypertension Qualified Code(s): I10 - Essential (primary) hypertension - Plan is on asp bid, duonebs prn, singulair, paxil, seroquel, metformin, empaglifosin , toprol xl, lisinopril and lovastatin dulcolax suppository/fleets for constipation hemostable to mobilize per ortho adv, she didn't amb much yesterday will f/u
[2019-12-07] MEDS: Topiramate 25 MG TAB PO SCH ×2 (14:24→20:46)
[2019-12-07] MEDS ORDERED: Ropivacaine HCl/PF 250 ML in Premix Bag 1 BAG NERVE BLCK SCH (16:45)
[2019-12-07] MEDS: Simvastatin 5 MG TAB PO SCH (20:43)
[2019-12-07] MEDS: Montelukast Sodium 10 mg Tablet PO SCH (20:44)
[2019-12-08] MEDS: Acetaminophen 500 MG TAB PO SCH ×3 (00:05→12:01)
[2019-12-08 05:20] LABS: Hemoglobin 11.5 g/dL (12.0-16.0); Mean Corpuscular HGB CONC 31.6 g/dL (32.0-36.0); Mean Corpuscular Hemoglobin 28.4 pg (27.0-31.0); Mean Platelet Volume 7.8 fL (7.4-10.4); Platelet Count 209 thou/uL (130-400); Red Blood Cell (RBC) Count 4.05 mill/uL (4.20-5.40); White Blood Cell (WBC) Count 11.8 thou/uL (4.8-10.8)
[2019-12-08] MEDS: HumaLOG 300 UNITS/3 ML VIAL SC PRN ×2 (06:31→12:35)
[2019-12-08] MEDS: Mometasone/Formoterol 120 PUFF INHALER INH SCH (07:08)
[2019-12-08] MEDS ORDERED: HYDROcodone/Acetaminophen 10/325 mg Tablet PO PRN ×2 (07:59)
[2019-12-08] MEDS: Multivitamin W/ Minerals 1 TAB PO SCH (08:41)
[2019-12-08] MEDS: PARoxetine 20 MG TAB PO SCH (08:41)
[2019-12-08] MEDS: metFORMIN 500 MG TAB PO SCH (08:41)
[2019-12-08] MEDS: Lisinopril 20 MG TAB PO SCH (08:42)
[2019-12-08] MEDS: Aspirin 81 mg Enteric Coated Tablet PO SCH (08:42)
[2019-12-08] MEDS: Furosemide 20 MG TAB PO SCH (08:42)
[2019-12-08] MEDS: Senokot S 8.6-50 MG TAB PO SCH (08:42)
[2019-12-08] MEDS: Ferrous Gluconate 324 MG TAB PO SCH (08:42)
[2019-12-08] MEDS: Sodium Chloride 0.9% 1,000 ML IV SCH (09:00)
[2019-12-08] MEDS: Topiramate 25 MG TAB PO SCH (11:22)
[2019-12-08 15:03] VITALS: BP 165/81; TEMP 98.6
--- NOTE | 2019-12-08 15:06 | PDOC.HOSPP ---
- Subjective Encounter Date: 12/08/19 Encounter Time: 10:30 Subjective: says she ambulated with PT in hallway today no sob - Objective Vital Signs & Weight: Vital Signs (12 hours) Temp Pulse Resp BP BP BP Pulse Ox 12/08/19 15:02 98.6 F 75 18 165/81 H 94 L 12/08/19 11:37 98.7 F 84 16 152/89 H 99 12/08/19 08:42 143/83 H 12/08/19 07:35 98.3 F 84 18 143/83 H 97 12/08/19 07:08 79 16 99 12/08/19 03:07 98.3 F 82 16 110/70 96 Weight Admit Weight 224 lb Weight 224 lb I&O: 12/07/19 12/08/19 12/09/19 06:59 06:59 06:59 Intake Total 1220 1475 1200 Output Total 750 Balance 470 1475 1200 Result Diagrams: 12/08/19 04:52 12/07/19 05:02 Additional Labs: Accuchecks 12/08/19 12/08/19 12/07/19 11:26 05:27 21:36 POC Glucose 229 H 199 H 193 H 12/07/19 15:12 POC Glucose 236 H Hospitalist ROS - Medication Medications: Active Medications Generic Name Dose Route Start Last Admin Trade Name Freq PRN Reason Stop Dose Admin Hydrocodone Bitart/Acetaminophen 1 tab 12/08/19 07:59 12/08/19 12:36 [place] 10/325 PO 1 tab Q4H PRN Administration Mild-Moderate Pain (1-5) Alprazolam 1 mg 12/06/19 13:14 12/07/19 06:11 Xanax PO 1 mg Q6H PRN Administration Anxiety Aspirin 81 mg 12/05/19 21:00 12/08/19 08:42 Ecotrin PO 81 mg BID DOYLE Administration Fentanyl 50 mcg 12/05/19 10:57 12/07/19 14:27 Sublimaze IV 50 mcg Q1H PRN Administration BREAKTHROUGH PAIN Ferrous Gluconate 324 mg 12/06/19 09:00 12/08/19 08:42 Fergon PO 324 mg BID DOYLE Administration Furosemide 20 mg 12/06/19 09:00 12/08/19 08:42 Lasix PO 20 mg QAM DOYLE Administration Sodium Chloride 1,000 mls @ 100 mls/hr 12/05/19 11:00 12/08/19 09:00 Normal Saline 0.9% IV Not Given .Q10H DOYLE Ropivacaine 250 ml/ Device 250 mls @ 10 mls/hr 12/07/19 16:45 12/07/19 17:41 NERVE BLCK 12/08/19 16:44 250 mls INF DOYLE Administration As Directed Insulin Human Lispro 0 units 12/05/19 16:15 12/08/19 12:35 Humalog SC 3 unit .MILD SLIDING SCALE PRN Administration Mild Correctional Scale Insulin Human Lispro 0 units 12/05/19 16:15 12/06/19 21:30 Humalog SC 2 unit .BEDTIME SLIDING SC PRN Administration Bedtime Correctional Scale Iron/Minerals/Multivitamins 1 tab 12/06/19 09:00 12/08/19 08:41 Theragran M PO 1 tab DAILY DOYLE Administration Lisinopril 20 mg 12/06/19 09:00 12/08/19 08:42 Zestril PO 20 mg DAILY DOYLE Administration Metformin HCl 1,000 mg 12/05/19 17:00 12/08/19 08:41 Glucophage PO 1,000 mg BID-WM DOYLE Administration Metoprolol Succinate 25 mg 12/06/19 09:00 12/08/19 08:43 Toprol Xl PO 25 mg DAILY DOYLE Administration Mometasone Furoate/Formoterol Fumar 2 puff 12/05/19 18:30 12/08/19 07:08 Dulera 200 Mcg/5 Mcg Inhaler INH 2 puff BID-RT DOYLE Administration Montelukast Sodium 10 mg 12/05/19 21:00 12/07/19 20:44 Singulair PO 10 mg HS DOYLE Administration Ondansetron HCl 4 mg 12/05/19 10:54 12/07/19 09:57 Zofran IVP 4 mg Q6H PRN Administration Nausea/Vomiting Paroxetine HCl 10 mg 12/06/19 09:00 12/08/19 08:41 Paxil PO 10 mg DAILY DOYLE Administration Quetiapine Fumarate 25 mg 12/05/19 21:00 12/07/19 20:44 Seroquel PO 25 mg HS DOYLE Administration Senna/Docusate Sodium 2 tab 12/06/19 09:00 12/08/19 08:42 Senokot S PO 2 tab BID DOYLE Administration Simvastatin 10 mg 12/05/19 21:00 12/07/19 20:43 Zocor PO 10 mg HS DOYLE Administration Topiramate 50 mg 12/05/19 21:00 12/08/19 11:22 Topamax PO Not Given BID DOYLE Tramadol HCl 100 mg 12/05/19 10:56 12/07/19 20:44 Ultram PO 100 mg Q6H PRN Administration Moderate Pain 4-6 - Exam General Appearance: NAD, awake alert Eye: PERRL, anicteric sclera ENT: no oropharyngeal lesions, moist mucosa Neck: supple, no JVD Heart: RRR, no murmur Respiratory: no wheezes, no rales Gastrointestinal: soft, non-tender, non-distended, normal bowel sounds Extremities: no cyanosis, no clubbing Neurological: cranial nerve grossly intact, no focal deficits Hosp A/P (1) Status post total knee replacement, left Code(s): Z96.652 - PRESENCE OF LEFT ARTIFICIAL KNEE JOINT Status: Acute (2) H/O extrinsic asthma Code(s): Z87.09 - PERSONAL HISTORY OF OTHER DISEASES OF THE RESPIRATORY SYSTEM Status: Chronic (3) Dyslipidemia Code(s): E78.5 - HYPERLIPIDEMIA, UNSPECIFIED Status: Chronic (4) Obesity (BMI 30-39.9) Code(s): E66.9 - OBESITY, UNSPECIFIED Status: Chronic (5) Anxiety and depression Code(s): F41.9 - ANXIETY DISORDER, UNSPECIFIED; F32.9 - MAJOR DEPRESSIVE DISORDER, SINGLE EPISODE, UNSPECIFIED Status: Chronic (6) Diabetes type 2, controlled Code(s): E11.9 - TYPE 2 DIABETES MELLITUS WITHOUT COMPLICATIONS Status: Chronic Qualifiers: Diabetes mellitus buttermaker helper insulin use: without group home use Diabetes mellitus complication status: without complication Qualified Code(s): E11.9 - Type 2 diabetes mellitus without complications (7) Hypertension Code(s): I10 - ESSENTIAL (PRIMARY) HYPERTENSION Status: Chronic Qualifiers: Hypertension type: essential hypertension Qualified Code(s): I10 - Essential (primary) hypertension - Plan is on asp bid, duonebs prn, singulair, paxil, seroquel, metformin, empaglifosin , toprol xl, lisinopril and lovastatin hemostable is likely going home today, says her son and mom stay close by to help if she needs
== END 2019-12-08 15:30 | disposition home or self-care (01) | DRG 470 ==
LOC: SDC 07:40 → SJJU 14:41
PROVIDERS: ADMIT Orthopaedic Surgery; ATTEND Orthopaedic Surgery
PROC: 0SRD0J9 Replacement of Left Knee Joint with Synthetic Substitute, Cemented, Open Approach (ICD-10-PCS; principal; 2019-12-05)
DX: M17.12 Unilateral primary osteoarthritis, left knee (principal); I10 Essential (primary) hypertension; E78.5 Hyperlipidemia, unspecified; G43.909 Migraine, unspecified, not intractable, without status migrainosus; J30.2 Other seasonal allergic rhinitis; F41.9 Anxiety disorder, unspecified; F41.0 Panic disorder [episodic paroxysmal anxiety]; E11.9 Type 2 diabetes mellitus without complications; E66.9 Obesity, unspecified; Z98.51 Tubal ligation status; Z87.891 Personal history of nicotine dependence; Z79.51 Long term (current) use of inhaled steroids; Z79.82 Long term (current) use of aspirin; Z79.84 Long term (current) use of oral hypoglycemic drugs; Z79.899 Other long term (current) drug therapy; Z68.39 Body mass index [BMI] 39.0-39.9, adult
CPT/HCPCS: 36415; 36416; 71045; 80048; 83605; 83880; 84145; 85025; 85027; 90471; 90686; C1713; C1776; G0008; J0670; J0690; J1885; J2001; J2250; J2405; J2550; J2704; J2795; J3010; J3490; J7620

== ENCOUNTER 2020-03-14 07:20 | Outpatient (CLI) | payer MEDICARE, OTHER ==
[2020-03-14 12:52] LABS: Anion Gap 14 mmol/L (10-20); BUN (Urea Nitrogen) 10 mg/dL (9.8-20.1); Calc. Creatinine Clearance 0 mL/min (70-130); Calcium 10.2 mg/dL (7.8-10.44); Carbon Dioxide 26 mmol/L (22-29); Chloride 103 mmol/L (98-107); Estimated GFR-MDRD Greater than 90; Glucose 160 mg/dL (70-105); Potassium 4.5 mmol/L (3.5-5.1); Sodium 138 mmol/L (136-145)
[2020-03-14 17:59] LABS: SARS-CoV-2 MS2 Positive; SARS-CoV-2 N Gene Negative; SARS-CoV-2 S Gene Negative; SARS-CoV-2 orf1ab Negative
== END 2020-03-14 07:21 | disposition home or self-care (01) ==
LOC: LABBT 07:20
PROVIDERS: ATTEND Orthopaedic Surgery
DX: Z01.812 Encounter for preprocedural laboratory examination (principal); Z11.59 Encounter for screening for other viral diseases; M24.662 Ankylosis, left knee
CPT/HCPCS: 80048; U0002; 87635

== ENCOUNTER 2020-03-19 09:24 | Day surgery (SDC) | payer MEDICARE ==
[2020-03-14 11:29] VITALS: BMI 35.4
[2020-03-19] MEDS ORDERED: Lidocaine 1% PF 5 ML VIAL ONE (10:11)
[2020-03-19] MEDS ORDERED: Midazolam HCl 2 mg/2 ml Vial ONE (10:14)
[2020-03-19] MEDS ORDERED: Fentanyl 100 MCG/2 ML VIAL ONE (11:21)
[2020-03-19] MEDS ORDERED: PROPOFOL 20 ML ONE ×2 (11:21)
[2020-03-19] MEDS ORDERED: HYDROcodone/Acetaminophen 10/325 mg Tablet ONE (12:31)
--- NOTE | 2020-03-20 07:18 | OP ---
DATE OF PROCEDURE: 03/19/2020 PREOPERATIVE DIAGNOSIS: Arthrofibrosis, left total knee. POSTOPERATIVE DIAGNOSIS: Arthrofibrosis, left total knee. PROCEDURE PERFORMED: Left knee manipulation under anesthesia. DESCRIPTION OF PROCEDURE: After anesthesia was induced, I manipulated the left total knee. She started out at about 85 degrees of flexion. At the completion, I was able to get her to about 115 degrees of flexion, so I was able to take her from 10 to 5 degrees of extension contracture. She emerged from anesthesia without difficulty. Job ID: [id number]
== END 2020-03-19 13:30 | disposition home or self-care (01) ==
LOC: SDC 09:24
PROVIDERS: ATTEND Orthopaedic Surgery
PROC: 0SNDXZZ Release Left Knee Joint, External Approach (ICD-10-PCS; principal; 2020-03-19)
PROC: 3E0T3BZ Introduction of Anesthetic Agent into Peripheral Nerves and Plexi, Percutaneous Approach (ICD-10-PCS; 2020-03-19)
DX: M24.662 Ankylosis, left knee (principal); G89.18 Other acute postprocedural pain; E11.9 Type 2 diabetes mellitus without complications; Z79.82 Long term (current) use of aspirin; Z79.84 Long term (current) use of oral hypoglycemic drugs; Z96.652 Presence of left artificial knee joint
CPT/HCPCS: J2001; J2250; J2704; J3010